=== PATIENT | female | born 1975 | race Caucasian/White ===

== ENCOUNTER 2023-12-15 09:09 | Emergency (ER) | payer OTHER ==
[2023-12-15 09:19] VITALS: BP 109/61; PULSE 61; RESP 18; TEMP 98.2; BMI 31.8
[2023-12-15] MEDS ORDERED: ACETAMINOPHEN INJECTION 100 ML ONE (10:27)
[2023-12-15 10:30] LABS: BASO % 0.7 % (0-2.0); EOS % 12.4 % (0-4.5); HEMATOCRIT 39.5 % (32.4-45.2); HEMOGLOBIN 13.3 GM/dL (10.7-15.3); LYMPH % 22.2 % (8-40); MCH 31.3 pg (25.7-33.7); MCHC 33.6 g/dl (32.0-36.0); MEAN PLT VOLUME 8.6 fl (7.5-11.1); MONO % 4.8 % (3.8-10.2); NEUT % 59.9 % (42.8-82.8); PLATELET COUNT 259 10^3/uL (134-434); RBC 4.25 M/mm3 (3.60-5.2); RDW 12.8 % (11.6-15.6); WHITE BLOOD COUNT 8.2 K/mm3 (4.0-10.0)
[2023-12-15] MEDS: ACETAMINOPHEN 1000 MG/100 ML BAG IVPB ONE (10:33)
[2023-12-15 10:35] LABS: INR 1.04 (0.83-1.09); PROTHROMBIN TIME (PATIENT) 11.9 SEC (9.7-13.0)
[2023-12-15 10:38] LABS: ACTIVATED PTT 40.4 SECONDS (25.2-36.5)
[2023-12-15 10:49] LABS: POTASSIUM 3.9 mmol/L (3.5-5.1)
[2023-12-15 10:51] LABS: CALCIUM 9.2 mg/dL (8.5-10.1)
[2023-12-15 10:52] LABS: ALBUMIN 3.8 g/dl (3.4-5.0); BLOOD UREA NITROGEN 9.7 mg/dL (7-18)
[2023-12-15 10:55] LABS: CREATININE 0.5 mg/dL (0.55-1.3)
[2023-12-15 10:56] LABS: BILIRUBIN,TOTAL 0.7 mg/dL (0.2-1); TOT PROT 7.2 g/dl (6.4-8.2)
[2023-12-15 11:00] LABS: N-TERMINAL BNP 129.3 pg/ml (5-125)
[2023-12-15 12:39] LABS: HIV INTERPRETATION NEGATIVE (NEGATIVE)
== END 2023-12-15 13:50 | disposition home or self-care (01) ==
LOC: JER 09:09
PROC: 3E033NZ Introduction of Analgesics, Hypnotics, Sedatives into Peripheral Vein, Percutaneous Approach (ICD-10-PCS; principal; 2023-12-15)
DX: R07.89 Other chest pain (principal); R06.02 Shortness of breath; R61 Generalized hyperhidrosis; R11.0 Nausea
CPT/HCPCS: 36415; 71045-TC-FY; 80053; 83735; 83880; 84439; 84443; 84484; 84703; 85025; 85610; 85730; 86803; 87389; 93005; 93010; 99285-25; J0131